=== PATIENT | male | born 1970 | race Caucasian/White ===

== ENCOUNTER → 2021-04-21 | Outpatient (CLI) | payer OTHER ==
--- NOTE | 2021-04-21 17:01 | Diagnostic Imaging Report ---
EXAMINATION: Left elbow radiographs, 3 views. COMPARISON: None. HISTORY: 50-year-old male, left elbow pain. FINDINGS: There is no elbow joint dislocation currently. There is no elbow joint effusion. There is no acute fracture. The joint spaces are well preserved. There is no identified radiopaque foreign body. There is a small focus of calcification projecting near the expected location of the common extensor tendons on the frontal view. IMPRESSION: 1. Small focal area of calcifications projecting near the expected distribution of the common extensor tendons which may reflect calcific tendinitis. 2. Additional radiographic assessment of the left elbow is unremarkable. Dictated by: Dictated on workstation # [id number]
== END ==
LOC: ORTHO 15:29
PROVIDERS: ATTEND Orthopaedic Surgery
DX: M25.522 Pain in left elbow (principal)
CPT/HCPCS: 73080; G0463; 99202

== ENCOUNTER → 2021-05-13 | Outpatient (CLI) | payer OTHER ==
--- NOTE | 2021-05-13 09:41 | Diagnostic Imaging Report ---
PROCEDURE: MRI left upper extremity without contrast. TECHNIQUE: Multiplanar, multisequence non contrast-enhanced MRI of the left upper extremity was accomplished. INDICATION: Left elbow pain. Injury. COMPARISON: Radiographs from 04/21/2021. FINDINGS: No acute fracture is seen in the left elbow. Alignment is normal. No focal bony lesions are identified. No significant bone marrow edema is seen. There is a large left elbow joint effusion. The ulnar collateral ligament appears intact. The radial collateral ligamentous complex demonstrates partial tearing of the anterior fibers, primarily at the radial collateral ligament component rather than the lateral ulnar collateral ligament. There is a high-grade, near complete, tear of the origin of the common extensor tendon. There appear to be some fibers intact posteriorly. There is thickening of the tendon and significant surrounding edema. The origin of the common flexor tendon appears intact. The distal biceps tendon and brachialis tendon are intact. The triceps tendon is intact. The ulnar nerve is well seen within the cubital tunnel. The caliber and signal appear normal. A distended joint recess contacts the ulnar nerve without significant compression seen. The median nerve appears normal. No focal muscular atrophy is seen. There is edema in the musculature about the lateral elbow. No soft tissue masses or fluid collections are seen. IMPRESSION: 1. High-grade, near-complete tear at the origin of the left common extensor tendon. Partial tearing at the anterior fibers of the radial collateral ligament complex. 2. Large left elbow joint effusion. Dictated by: Dictated on workstation # [id number]
== END ==
LOC: RAD 08:00
PROVIDERS: ATTEND Orthopaedic Surgery
DX: M67.824 Other specified disorders of tendon, left elbow (principal)
CPT/HCPCS: 73221

== ENCOUNTER → 2021-06-07 | Outpatient (CLI) | payer OTHER | LOC: ORTHO 13:00 | PROVIDERS: ATTEND Orthopaedic Surgery | DX: S56.91 Strain of unspecified muscles, fascia and tendons at forearm level (principal); X58.XXXD Exposure to other specified factors, subsequent encounter | CPT/HCPCS: 99213 ==

== ENCOUNTER 2021-06-27 05:32 | Outpatient (CLI) | payer OTHER ==
[~2021-06-27] VITALS: Ht 188 cm; Wt 95.0 kg
== END 2021-06-27 10:37 | disposition home or self-care (01) ==
LOC: PREOP 05:32
PROVIDERS: ATTEND Orthopaedic Surgery
DX: Z01.818 Encounter for other preprocedural examination (principal)

== ENCOUNTER 2021-07-01 06:17 | Day surgery (SDC) | payer OTHER ==
[~2021-07-01] VITALS: Ht 187.9 cm; Wt 95.0 kg
[2021-07-01] VITALS (10 sets, daily range): BP systolic 104–122; BP diastolic 65–76
[2021-07-01] MEDS ORDERED: ceFAZolin 2 GM IV Premixed 50 ML IV ONE (06:30)
[2021-07-01] MEDS: LACTATED RINGERS 1,000 ML IV PRN ×2 (06:44→08:23)
[2021-07-01] MEDS ORDERED: LACTATED RINGERS 1,000 ML IV PRN (06:45)
[2021-07-01] MEDS ORDERED: BUPIVACAINE 0.25% 10 ML (SENSORCAINE) VIAL ONE (07:20)
[2021-07-01] MEDS ORDERED: fentaNYL INJ 100 MCG/2 ML AMP ONE (07:27)
[2021-07-01] MEDS ORDERED: ONDANSETRON 4 MG/2 ML (SDV) Z0FRAN ONE (07:27)
[2021-07-01] MEDS ORDERED: LIDOCAINE PF 2% 5 ML (XYLOCAINE) VIAL ONE (07:27)
[2021-07-01] MEDS ORDERED: MIDAZOLAM 2 MG/2 ML (VERSED) VIAL ONE (07:27)
[2021-07-01] MEDS ORDERED: proPOfol 200 MG/20 ML (DIPRIVAN) VIAL IV ONE (07:27)
[2021-07-01] MEDS ORDERED: SEVOFLURANE (ULTANE) 15 ML INHAL SOLN ONE ×2 (08:30→08:56)
--- NOTE | 2021-07-01 08:56 | Progress Note-Pre Operative ---
Pre-Operative Progress Note H&P Reviewed The H&P was reviewed, patient examined and no changes noted. Date Seen by Provider: Jul 01, 2021 Time Seen by Provider: 07:40 Date H&P Reviewed: Jul 01, 2021 Time H&P Reviewed: 07:40 Pre-Operative Diagnosis: Left Elbow Extensor Tendon Tear GER MANUEL MD Jul 01, 2021 08:56
--- NOTE | 2021-07-01 09:01 | Operative Report - Ortho ---
Operative Report Surgeon (s)/Highway Inspector (s) Surgeon GER MANUEL MD Highway Inspector n/a Pre-Operative Diagnosis Left Elbow Extensor Tendon Tear Post-Operative Diagnosis same Operative Report Date of Procedure: Jul 01, 2021 Name of Procedure Performed: Repair of Left Elbow Common Extensor Tendon Description & Findings After obtaining informed consent and marking the patient in the preop holding area, the patient was administered IV antibiotics. Patient was taken to the OR and general anesthesia was induced. The left upper extremity was prepped and draped. Surgical timeout was taken. Incision was made from the anterolateral edge of the lateral epicondyle and extended for just over 4 cm. Blunt dis section was carried down to fascia. Fascia was divided and dissection was carried down to the lateral epicondyle. Rongeur was used to removed degenerative tendon tissue and used to debride the edge of the bone. 2.3 mm Iconix anchor was inserted in the lateral epicondyle. 2 horizontal matress sutures were passed through the common extensor. Sutures were tied with good approximation and compression to the debrided area of bone. Wound was irrigated with normal saline. Fascial layer was repaired with 0 vicryl. Subcutaneous layer was repaired with 3-0 vicryl. Skin was repaired with 4-0 v-loc. Wound was dressed with mastisol, steri-strips, 4x4s, cast padding, and delfino wrap. Patient tolerated the procedure well and was stable to the recovery room. Anesthesia Type General Estimated Blood Loss minimal Specimen(s) collected/removed None GER MANUEL MD Jul 01, 2021 09:01
[2021-07-01] MEDS ORDERED: OXC5T PO (09:03)
[2021-07-01] MEDS ORDERED: ONDANSETRON 4 MG/2 ML (SDV) Z0FRAN IVP PRN (09:15)
[2021-07-01] MEDS ORDERED: HYDROmorphone 2 MG/ML VIAL (DILAUDID) IV ONE (09:15)
[2021-07-01] MEDS ORDERED: morphine INJ 10 MG/ML 1ML (SYR OR VIAL) IVP ONE (09:15)
--- NOTE | 2021-07-01 09:40 | Anesthesia-General Post-Op ---
General Patient Condition Mental Status/LOC: Same as Preop Cardiovascular: Satisfactory Nausea/Vomiting: Absent Respiratory: Satisfactory Pain: Controlled Complications: Absent Post Op Complications Complications None Follow Up Care/Instructions Patient Instructions None needed. Anesthesia/Patient Condition Patient Condition Patient is doing well, no complaints, stable vital signs, no apparent adverse anesthesia problems. He just returned to [facility] and has no C/O a headache. REHAN MOYER DO Jul 01, 2021 09:40
== END 2021-07-01 10:50 | disposition home or self-care (01) ==
LOC: SDC 06:17
PROVIDERS: ATTEND Orthopaedic Surgery
DX: S46.812A Strain of other muscles, fascia and tendons at shoulder and upper arm level, left arm, initial encounter (principal); M67.824 Other specified disorders of tendon, left elbow
CPT/HCPCS: 87081

== ENCOUNTER → 2021-07-04 | Outpatient (CLI) | payer OTHER ==
[~2021-07-04] MED LIST: OXC5T PO
== END | disposition home or self-care (01) ==
LOC: PREOP 05:35
PROVIDERS: ATTEND Surgery
DX: Z01.818 Encounter for other preprocedural examination (principal)

== ENCOUNTER → 2021-07-12 | Outpatient (CLI) | payer OTHER | LOC: ORTHO 15:30 | PROVIDERS: ATTEND Orthopaedic Surgery | DX: Z47.89 Encounter for other orthopedic aftercare (principal) ==

== ENCOUNTER → 2021-08-16 | Outpatient (CLI) | payer OTHER | LOC: ORTHO 16:00 | PROVIDERS: ATTEND Orthopaedic Surgery | DX: Z47.89 Encounter for other orthopedic aftercare (principal) ==